=== PATIENT | male | born 1960 | race Caucasian/White ===

== ENCOUNTER 2021-09-30 10:00 | Day surgery (SDC) | payer OTHER ==
[~2021-09-30] VITALS: Ht 185.4 cm; Wt 106.8 kg
--- NOTE | ~2021-09-30 | OR ---
[facility] [address], [place] [address] Draft DATE OF OPERATION: 09/30/2021 SURGEON: Paulino Melvin MD PREOPERATIVE DIAGNOSIS: Partial rotator cuff tear, right shoulder. POSTOPERATIVE DIAGNOSIS: Partial rotator cuff tear, right shoulder. PROCEDURE PERFORMED: Right shoulder arthroscopy with subacromial decompression and debridement of rotator cuff. DIGITAL PRINTER: FLORA Kingsley. ANESTHESIA: General. BLOOD LOSS: Minimal. BRIEF HISTORY: Mahendra is a 61-year-old gentleman with chronic shoulder pain, nonresponsive to nonoperative treatment. MRI showed the above findings with some minor fraying of the labrum. Risks and benefits of operative treatment were discussed with him. He elected to proceed. PROCEDURE IN DETAIL: Once consent was obtained, he was taken to the operating room. After adequate anesthesia, he was placed in a beach chair position. All downside pressure points well padded. The right arm was prepped and draped in a standard sterile fashion. The shoulder was injected with 15 mL 0.25% Marcaine with epinephrine as was subacromial space. Standard posterior portal was made and the scope was introduced in the shoulder. ARTHROSCOPIC FINDINGS: There was moderate synovitis. It was quite friable. There was a little bit of bleeding into the shoulder. The biceps, biceps anchor and labrum showed minor fraying posteriorly. 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 Undersurface of the rotator cuff again showed some minor fraying on the articular side. The subscap was intact. Glenoid was intact. Subacromial space showed marked thickening of the bursa with a fair amount of inflammatory bursitis. The rotator cuff was intact with again all the minor fraying of a mm or 2. DESCRIPTION OF OPERATION: Diagnostic arthroscopy was undertaken as noted above. When the scope was in the shoulder we did nguyen the partial tear. The subacromial bursoscopy was then undertaken and the bursa was removed using a combination of the shaver and Mitek VAPR. The superior surface of the tear was marked with a spinal needle was investigated. There was no full-thickness component only 1 mm depth. This was debrided back to bleeding surface. The bursa was removed in total. The scope was then withdrawn. Portals were closed with 3-0 nylon and the shoulder was injected with 60 mg Toradol at the end of the case. He tolerated the procedure well. All wounds were then closed with nylon and dressed with Allevyn and Tegaderm. He was taken to the recovery room in satisfactory condition. Paulino Melvin MD BA/CALIL /[id number] Copies: ~ PATIENT NAME: OBDULIO KING OPERATIVE REPORT DATE OF : 56 REPORT #: [id number] PHYSICIAN: PAULINO MELVIN MD PCP: CHARLY ALVAREZ NP REPORT IS CONFIDENTIAL AND NOT TO BE RELEASED WITHOUT AUTHORIZATION
[~2021-09-30 10:00] MED LIST: FEXOFENADINE H180 MG PO; LOW DOSE ASPIRI81 MG PO; MAGNESIUM250 MG PO; OSTEO BI-FLEX1 EAC2 PO; POTASSIUM CHLO10 ME1 PO; VITAMIN A2400 MCG PO; VITAMIN B-2100 MG PO; VITAMIN C1000 MG PO; VITAMIN D350 MC3 PO
[2021-09-30] MEDS ORDERED: CELECOXIB200 MG PO (12:21)
[2021-09-30] MEDS ORDERED: HYDROCODON-ACE1 EA11 PO (12:22)
--- NOTE | 2021-09-30 12:39 | NUR ---
09/30/21 1239 Charlene Moss 1221 PATIENT INTO PACU. REPORT RECIEVED FROM OR. PATIENT HAS OXY MASK WITH 6 LITERS OF OXYGEN. PATIENT REQUIRES SMALL AMOUNT OF AIRWAY SUPPORT. VITAL SIGNS DOCUMENTED. BREATHING EQUAL AND UNLABORED. PATIENT STILL DROWSY. DENIES ANY PAIN OR NAUSEA. IV SITE PATENT IV FLUIDS RUNNING.
--- NOTE | 2021-09-30 14:20 | NUR ---
1420-PATIENT UP TO RESTROOM. AMBULATES DOWN HALLAWAY. GAIT STEADY AND TOLERATED WELL. 1424-PATINET BACK TO ROOM. VSS. DENIES PAIN AND NAUSEA. DRESSINGS CLEAN, DRY, AND INTACT. PATIENT READY TO GO HOME. FAMILY IN ROOM.
== END 2021-09-30 14:40 | disposition home or self-care (01) ==
LOC: DS 10:00
PROVIDERS: ATTEND Specialist
PROC: 0RNJ4ZZ Release Right Shoulder Joint, Percutaneous Endoscopic Approach (ICD-10-PCS; 2021-09-30)
PROC: 0RBJ4ZZ Excision of Right Shoulder Joint, Percutaneous Endoscopic Approach (ICD-10-PCS; principal; 2021-09-30 12:00)
DX: M75.111 Incomplete rotator cuff tear or rupture of right shoulder, not specified as traumatic (principal); M75.21 Bicipital tendinitis, right shoulder; M19.121 Post-traumatic osteoarthritis, right elbow; M65.9 Synovitis and tenosynovitis, unspecified; M71.9 Bursopathy, unspecified
CPT/HCPCS: J0690; J1100; J1885; J2250; J2405; J2704; J2795; J7121